=== PATIENT | male | born 1995 | race American Indian/Alaskan Native ===

== ENCOUNTER 2018-05-02 10:13 | Emergency (ER) | payer SELFPAY ==
--- NOTE | 2018-05-02 10:56 | Emergency Department Report ---
ED Syncope HPI - General Chief Complaint: Syncope Stated Complaint: SYNCOPY Time Seen by Provider: 05/02/18 10:40 - History of Present Illness Initial Comments: Mr. Dotson is a 22-year-old male has a hx of cardiac disease. Today he had a syncopal episode. He stated that he did not feel well prior to episode. He is not supposed to drink energy drinks due to his heart condition, however he drank red bull prior to the syncope. He felt flushed with nausea. He felt his heart racing. Then loss of consciousness then occurred. Witnessed by Coworkers who immediately performed compressions. However he does recall feeling the chest compressions. He had to fight off his coworkers who attempted to continue the chest compressions although he was breathing on his own. He has diffuse chest soreness due to the compressions. He is followed by fast food attendant Dr. Graves. Dr. Graves' office located in [place]. He is supposed to take 2 medications one to keep his blood pressure elevated. Another medication to keep his heart rate regulated. He has not taken these medications in quite some time.. He does not smoke tobacco. Does not drink alcohol. Does not use recreational drugs. He is a correctional officer sergeant. There is no family history of cardiac disease. He has been followed by a fast food attendant since the age of 4. Timing/Prior Episodes: remote history Precipitating Factors: Positive: nausea, rapid heart beat Context: standing Loss of Consciousness: brief (seconds) Current Symptoms: back to normal, chest pain (chest soreness after chest compressions) - Related Data Allergies/Adverse Reactions: Allergies No Known Allergies Allergy (Unverified 05/02/18 10:40) ED Review of Systems ROS: Stated complaint: SYNCOPY Other details as noted in HPI Comment: All other systems reviewed and negative Constitutional: denies: fever, malaise Cardiovascular: palpitations ED Past Medical Hx - Past Medical History Previous Medical History?: Yes Additional medical history: Hypotension - Family History Family history: no significant - Social History Smoking Status: Never Smoker Substance Use Type: None ED Physical Exam - General Limitations: No Limitations General appearance: alert, in no apparent distress - Head Head exam: Present: atraumatic, normocephalic - Eye Eye exam: Present: normal appearance - ENT ENT exam: Present: mucous membranes moist - Neck Neck exam: Present: normal inspection. Absent: tenderness - Respiratory Respiratory exam: Present: normal lung sounds bilaterally. Absent: respiratory distress, wheezes, rales, rhonchi - Cardiovascular Cardiovascular Exam: Present: regular rate, normal rhythm, normal heart sounds. Absent: systolic murmur, diastolic murmur, rubs, gallop - GI/Abdominal GI/Abdominal exam: Present: soft, normal bowel sounds. Absent: distended, tenderness, guarding, rebound - Rectal Rectal exam: Present: deferred - Extremities Exam Extremities exam: Present: normal inspection - Back Exam Back exam: Present: normal inspection - Neurological Exam Neurological exam: Present: alert, oriented X3 - Psychiatric Psychiatric exam: Present: normal affect, normal mood - Skin Skin exam: Present: warm, dry, intact, normal color. Absent: rash ED Course Vital Signs 05/02/18 05/02/18 10:45 10:50 Temperature 98.5 F Pulse Rate 65 Respiratory 16 16 Rate Blood Pressure 107/69 [Left] O2 Sat by Pulse 98 98 Oximetry ED Medical Decision Making - Lab Data Result diagrams: 05/02/18 11:19 05/02/18 11:19 - Medical Decision Making I spoke with Dr. Paulina Graves, director pediatric, who is taken care of Ar for several years. 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 He has failed treatment Florinef and Midodrine . He has done well with beta abner. However Dr. Graves know that he is noncompliant. He is followed very closely by Dr. Graves on a consistent basis. Dr. Graves recommended metoprolol 50 mg once a day. He states that metoprolol is the best treatment for this condition. Mother arrived after my initial evaluation. She explained Ar had Kawasaki' s disease as a young child. Ar has had several ED visits from syncope including hospitals in [facility]. I strongly encouraged taking his home medication including metoprolol. Orthostatic vital signs did review heart rate increasing from 60 bpm to 90 bpm upon standing. Critical care attestation.: If time is entered above; I have spent that time in minutes in the direct care of this critically ill patient, excluding procedure time. ED Disposition Clinical Impression: Neurocardiogenic syncope Disposition: DC-01 TO HOME OR SELFCARE Is pt being admited?: No Does the pt Need Aspirin: No Condition: Stable Instructions: Syncope (ED) Referrals: PAULINA GRAVES MD [Staff Physician] - 3-5 Days Forms: Work/School Release Form(ED) Time of Disposition: 12:42
--- NOTE | 2018-05-02 11:25 | XRay Report ---
AP CHEST: HISTORY: Syncope AP view of the chest demonstrates a normal mediastinal and cardiac contour with clear lungs and normal bony and soft tissue structures. IMPRESSION: Unremarkable AP chest.
[2018-05-02 11:35] LABS: Eosinophils % (Auto) 0.8 % (0.0-4.3); Hematocrit 45.5 % (35.5-45.6); Hemoglobin 15.6 gm/dl (11.8-15.2); Lymphocytes # (Auto) 1.2 K/mm3 (1.2-5.4); Lymphocytes % (Auto) 28.3 % (13.4-35.0); Mean Corpuscular HGB Conc 34 % (32-34); Mean Corpuscular Hemoglobin 30 pg (28-32); Mean Corpuscular Volume 88 fl (84-94); Monocytes # (Auto) 0.5 K/mm3 (0.0-0.8); Platelet Count 161 K/mm3 (140-440); Red Blood Count 5.16 M/mm3 (3.65-5.03); Red Cell Distribution Width 13.4 % (13.2-15.2)
[2018-05-02 11:50] LABS: BUN/Creatinine Ratio 9; Blood Urea Nitrogen 9 mg/dL (9-20); Hemolysis Index 5
[2018-05-02 13:00] VITALS: BP 119/62
== END 2018-05-02 13:01 | disposition home or self-care (01) ==
LOC: ED 10:13
DX: R55 Syncope and collapse (principal)
CPT/HCPCS: 36415; 71045; 80048; 85025; 93005; 93010; 99284